=== PATIENT | female | born 1985 | race Caucasian/White ===

== ENCOUNTER 2021-12-12 17:57 | Inpatient (IN) | payer OTHER ==
[2021-12-12 18:25] VITALS: BMI 19.1
[2021-12-12] MEDS ORDERED: MAGNESIUM HYDROX 2400MG/30ML ORAL SUSPENSION 30 ML CUP PO PRN (23:11)
[2021-12-12] MEDS ORDERED: ONDANSETRON *ODT* 4 MG TABLET SL PRN (23:11)
[2021-12-12] MEDS ORDERED: DICYCLOMINE HCL 10 MG CAPSULE PO PRN (23:11)
[2021-12-12] MEDS ORDERED: BENZOCAINE/MENTHOL (CHLORASEPTIC ) LOZENGE MM PRN (23:11)
[2021-12-12] MEDS ORDERED: NALOXONE HCL (KLOXXADO) 8 MG SPRAY NS PRN (23:11)
[2021-12-12] MEDS ORDERED: BISMUTH SUBSALICYLATE 524 MG/30 ML PO PRN (23:11)
[2021-12-12] MEDS ORDERED: ACETAMINOPHEN 325 MG TABLET (FP) PO PRN ×2 (23:11)
[2021-12-12] MEDS ORDERED: LOPERAMIDE HCL 2 MG CAPSULE PO PRN (23:11)
[2021-12-12] MEDS ORDERED: IBUPROFEN 400 MG TABLET (FP) PO PRN (23:11)
[2021-12-12] MEDS ORDERED: IBUPROFEN 600 MG TABLET (FP) PO PRN (23:11)
[2021-12-12] MEDS ORDERED: MAG HYDROX/AL HYDROX/SIMETH 30 ML UNIT-DOSE CUP PO PRN (23:11)
[2021-12-12] MEDS ORDERED: NICOTINE POLACRILEX 2 MG GUM BUC PRN (23:11)
[2021-12-12] MEDS ORDERED: METHOCARBAMOL 500 MG TABLET PO PRN (23:11)
[2021-12-12] MEDS ORDERED: MAGNESIUM CITRATE 300 ML BOTTLE PO PRN (23:11)
[2021-12-12] MEDS ORDERED: cloNIDine HCL 0.1 MG TABLET PO PRN (23:21)
[2021-12-13] MEDS ORDERED: methaDONE HCL 10 MG TABLET (FOR DETOX USE ONLY) PO ONE (10:00)
[2021-12-13] MEDS: PRENATAL VITAMINS W/ FOLIC ACID TABLET (FP) PO SCH (10:04)
[2021-12-13] MEDS: NICOTINE 14 MG/24 HOURS TOPICAL PATCH TD SCH (10:04)
[2021-12-13 11:38] LABS: HEMATOCRIT 31.4 % (32.4-45.2); HEMOGLOBIN 10.2 GM/dL (10.7-15.3); MCH 26.6 pg (25.7-33.7); MCHC 32.6 g/dl (32.0-36.0); MEAN CELL VOLUME 81.7 fl (80-96); MEAN PLT VOLUME 10.1 fl (7.5-11.1); RBC 3.85 M/mm3 (3.60-5.2); RDW 15.6 % (11.6-15.6)
[2021-12-13 11:41] LABS: PLATELET COUNT 231 10^3/uL (134-434)
[2021-12-13 11:49] LABS: ALBUMIN 2.9 g/dl (3.4-5.0); CALCIUM 8.9 mg/dL (8.5-10.1)
[2021-12-13 11:50] LABS: BLOOD UREA NITROGEN 23.3 mg/dL (7-18)
[2021-12-13 11:52] LABS: CREATININE 0.9 mg/dL (0.55-1.3)
[2021-12-13 11:54] LABS: BILIRUBIN,TOTAL 0.4 mg/dL (0.2-1); TOT PROT 5.9 g/dl (6.4-8.2)
[2021-12-13] MEDS ORDERED: NICOTINE 10 MG CARTRIDGE (INHALER) IH PRN (18:45)
[2021-12-13] MEDS: THIAMINE HCL 100 MG TABLET (FP) PO SCH (22:20)
[2021-12-13] MEDS: MELATONIN 5 MG TABLETS PO SCH (22:20)
[2021-12-14] MEDS: NICOTINE 14 MG/24 HOURS TOPICAL PATCH TD SCH (10:36)
[2021-12-14] MEDS: PRENATAL VITAMINS W/ FOLIC ACID TABLET (FP) PO SCH (10:36)
[2021-12-14] MEDS: MELATONIN 5 MG TABLETS PO SCH (22:24)
[2021-12-14] MEDS: THIAMINE HCL 100 MG TABLET (FP) PO SCH (23:14)
[2021-12-15 09:18] VITALS: RESP 18
[2021-12-15] MEDS: NICOTINE 14 MG/24 HOURS TOPICAL PATCH TD SCH (10:34)
[2021-12-15] MEDS: PRENATAL VITAMINS W/ FOLIC ACID TABLET (FP) PO SCH (10:34)
[2021-12-15 13:12] VITALS: BP 101/67; PULSE 68; TEMP 97.1
== END 2021-12-15 14:47 | disposition other institution (70) | DRG 773 ==
LOC: YASAS 17:57 → Y3N 23:01
PROVIDERS: ADMIT Allergy & Immunology; ATTEND Surgery
PROC: HZ2ZZZZ Detoxification Services for Substance Abuse Treatment (ICD-10-PCS; principal; 2021-12-12)
DX: F11.23 Opioid dependence with withdrawal (principal); F12.20 Cannabis dependence, uncomplicated; F17.210 Nicotine dependence, cigarettes, uncomplicated; D64.9 Anemia, unspecified; E46 Unspecified protein-calorie malnutrition; R79.89 Other specified abnormal findings of blood chemistry; Z68.1 Body mass index [BMI] 19.9 or less, adult; Z87.440 Personal history of urinary (tract) infections
CPT/HCPCS: 36415; 71045-TC-FY; 76775-TC; 80053; 80061; 80307; 81003; 81025; 82570; 83735; 84100; 84156; 84300; 84443; 84484; 85025; 85027; 85379; 86780; 87040; 87086; 87811; 93005; 93010; 93970-TC; C9803-CS; G0378; J1644; U0003; U0005

== ENCOUNTER 2022-04-11 21:53 | Inpatient (IN) | payer OTHER ==
[2022-04-11 23:01] VITALS: BMI 25.6
[2022-04-11] MEDS ORDERED: MAG HYDROX/AL HYDROX/SIMETH 30 ML UNIT-DOSE CUP PO PRN (23:24)
[2022-04-11] MEDS ORDERED: IBUPROFEN 400 MG TABLET (FP) PO PRN (23:24)
[2022-04-11] MEDS ORDERED: BENZOCAINE/MENTHOL (CHLORASEPTIC ) LOZENGE MM PRN (23:24)
[2022-04-11] MEDS ORDERED: LOPERAMIDE HCL 2 MG CAPSULE PO PRN (23:24)
[2022-04-11] MEDS ORDERED: ONDANSETRON *ODT* 4 MG TABLET SL PRN (23:24)
[2022-04-11] MEDS ORDERED: BISMUTH SUBSALICYLATE 524 MG/30 ML PO PRN (23:24)
[2022-04-11] MEDS ORDERED: MAGNESIUM HYDROX 2400MG/30ML ORAL SUSPENSION 30 ML CUP PO PRN (23:24)
[2022-04-11] MEDS ORDERED: NALOXONE HCL (KLOXXADO) 8 MG SPRAY NS PRN (23:24)
[2022-04-11] MEDS ORDERED: ACETAMINOPHEN 325 MG TABLET (FP) PO PRN ×2 (23:24)
[2022-04-11] MEDS ORDERED: POLYETHYLENE GLYCOL (HEALTHYLAX) 3350 17 GM PACKET PO PRN (23:24)
[2022-04-12] MEDS: hydrOXYzine PAMOATE 25 MG CAPSULE (FP) PO PRN ×3 (06:44→22:11)
[2022-04-12] MEDS: METHOCARBAMOL 500 MG TABLET PO PRN ×2 (06:44→16:43)
[2022-04-12] MEDS: DICYCLOMINE HCL 10 MG CAPSULE PO PRN ×2 (06:47→22:10)
[2022-04-12] MEDS ORDERED: methaDONE HCL 10 MG TABLET (FOR DETOX USE ONLY) PO ONE (10:45)
[2022-04-12] MEDS: PRENATAL VITAMINS W/ FOLIC ACID TABLET (FP) PO SCH (10:47)
[2022-04-12] MEDS: diazePAM 5 MG TABLET PO SCH ×3 (10:48→22:09)
[2022-04-12] MEDS: NICOTINE 14 MG/24 HOURS TOPICAL PATCH TD SCH (10:49)
[2022-04-12] MEDS: NICOTINE POLACRILEX 2 MG GUM BUC PRN ×2 (14:56→19:49)
[2022-04-12] MEDS: IBUPROFEN 600 MG TABLET (FP) PO PRN (16:43)
[2022-04-12] MEDS: NICOTINE 10 MG CARTRIDGE (INHALER) IH PRN (19:35)
[2022-04-12] MEDS: MELATONIN 5 MG TABLETS PO SCH (22:09)
[2022-04-12] MEDS: THIAMINE HCL 100 MG TABLET (FP) PO SCH (22:09)
[2022-04-13] MEDS: diazePAM 5 MG TABLET PO SCH ×4 (05:30→22:15)
[2022-04-13] MEDS: METHOCARBAMOL 500 MG TABLET PO PRN ×2 (10:13→22:16)
[2022-04-13] MEDS: PRENATAL VITAMINS W/ FOLIC ACID TABLET (FP) PO SCH (10:13)
[2022-04-13] MEDS: NICOTINE 14 MG/24 HOURS TOPICAL PATCH TD SCH (10:15)
[2022-04-13] MEDS: NICOTINE 10 MG CARTRIDGE (INHALER) IH PRN ×3 (10:15→17:26)
[2022-04-13 11:08] LABS: HEMATOCRIT 30.2 % (32.4-45.2); HEMOGLOBIN 10.1 GM/dL (10.7-15.3); MCH 27.4 pg (25.7-33.7); MCHC 33.3 g/dl (32.0-36.0); MEAN CELL VOLUME 82.4 fl (80-96); MEAN PLT VOLUME 8.9 fl (7.5-11.1); PLATELET COUNT 222 10^3/uL (134-434); RBC 3.67 M/mm3 (3.60-5.2); RDW 13.9 % (11.6-15.6); WHITE BLOOD COUNT 4.8 K/mm3 (4.0-10.0)
[2022-04-13 11:10] LABS: BLOOD UREA NITROGEN 21.3 mg/dL (7-18); CALCIUM 8.9 mg/dL (8.5-10.1)
[2022-04-13 11:12] LABS: CREATININE 0.7 mg/dL (0.55-1.3)
[2022-04-13 11:26] LABS: BILIRUBIN,TOTAL 0.2 mg/dL (0.2-1)
[2022-04-13] MEDS: IBUPROFEN 600 MG TABLET (FP) PO PRN (13:45)
[2022-04-13] MEDS: hydrOXYzine PAMOATE 25 MG CAPSULE (FP) PO PRN ×2 (13:45→22:15)
[2022-04-13] MEDS: cloNIDine HCL 0.1 MG TABLET PO PRN ×2 (13:45→22:15)
[2022-04-13] MEDS: MELATONIN 5 MG TABLETS PO SCH (22:15)
[2022-04-13] MEDS: THIAMINE HCL 100 MG TABLET (FP) PO SCH (22:15)
[2022-04-14] MEDS: diazePAM 5 MG TABLET PO SCH ×3 (06:09→23:10)
[2022-04-14] MEDS: METHOCARBAMOL 500 MG TABLET PO PRN (06:11)
[2022-04-14] MEDS ORDERED: methaDONE HCL 10 MG TABLET (FOR DETOX USE ONLY) PO ONE (10:00)
[2022-04-14] MEDS: PRENATAL VITAMINS W/ FOLIC ACID TABLET (FP) PO SCH (10:12)
[2022-04-14] MEDS: NICOTINE 14 MG/24 HOURS TOPICAL PATCH TD SCH (10:13)
[2022-04-14] MEDS: NICOTINE 10 MG CARTRIDGE (INHALER) IH PRN ×2 (10:15→17:24)
[2022-04-14] MEDS: IBUPROFEN 600 MG TABLET (FP) PO PRN (17:21)
[2022-04-14] MEDS: cloNIDine HCL 0.1 MG TABLET PO PRN (17:21)
[2022-04-14] MEDS: hydrOXYzine PAMOATE 25 MG CAPSULE (FP) PO PRN (17:21)
[2022-04-14 21:12] VITALS: BP 141/69; PULSE 65; RESP 17; TEMP 97.3
[2022-04-14] MEDS: MELATONIN 5 MG TABLETS PO SCH (23:09)
[2022-04-14] MEDS: THIAMINE HCL 100 MG TABLET (FP) PO SCH (23:10)
[2022-04-15] MEDS ORDERED: diazePAM 5 MG TABLET PO SCH (06:00)
[2022-04-16] MEDS ORDERED: diazePAM 5 MG TABLET PO ONE (06:00)
[2022-04-16] MEDS ORDERED: methaDONE HCL 10 MG TABLET (FOR DETOX USE ONLY) PO ONE (10:00)
== END 2022-04-15 08:05 | disposition short-term general hospital (02) | DRG 773 ==
LOC: YASAS 21:53 → Y6N 23:31
PROVIDERS: ADMIT Allergy & Immunology; ATTEND Surgery
PROC: HZ2ZZZZ Detoxification Services for Substance Abuse Treatment (ICD-10-PCS; principal; 2022-04-11)
DX: F11.23 Opioid dependence with withdrawal (principal); F10.230 Alcohol dependence with withdrawal, uncomplicated; F14.20 Cocaine dependence, uncomplicated; F12.20 Cannabis dependence, uncomplicated; F17.210 Nicotine dependence, cigarettes, uncomplicated; F31.9 Bipolar disorder, unspecified; F41.9 Anxiety disorder, unspecified; F90.9 Attention-deficit hyperactivity disorder, unspecified type; D64.9 Anemia, unspecified; Z62.810 Personal history of physical and sexual abuse in childhood; Z91.410 Personal history of adult physical and sexual abuse
CPT/HCPCS: 36415; 80053; 81025; 85027; 86780; C9803-CS; Q0162; U0003; U0005

== ENCOUNTER 2022-04-14 20:19 | Inpatient (IN) | payer OTHER ==
[2022-04-14 20:46] VITALS: RESP 18
[2022-04-14] MEDS ORDERED: THIAMINE HCL 100 MG TABLET (FP) PO ONE (23:12)
[2022-04-14] MEDS ORDERED: MELATONIN 5 MG TABLETS PO ONE (23:12)
[2022-04-14] MEDS ORDERED: diazePAM 5 MG TABLET PO ONE (23:12)
[2022-04-14] MEDS ORDERED: KETOROLAC TROMETHAMINE 30 MG/1 ML VIAL IVPUSH ONE (23:12)
[2022-04-14] MEDS ORDERED: VANCOMYCIN 1 GM in D5W (PRE-DOCKED) 1,000 MG/250 ML IVPB ONE (23:15)
[2022-04-14] MEDS ORDERED: PIPERACILLIN/TAZOB 4.5 GM 4.5 GM in DEXTROSE 5%-WATER 100 ML IVPB ONE (23:15)
[2022-04-15] MEDS ORDERED: THIAMINE HCL 100 MG TABLET (FP) ONE
[2022-04-15] MEDS ORDERED: KETOROLAC TROMETHAMINE 30 MG/1 ML VIAL ONE
[2022-04-15] MEDS ORDERED: MELATONIN 5 MG TABLETS ONE
[2022-04-15] MEDS ORDERED: VANCOMYCIN/WATER FOR INJ (PEG) 1,000 MG/200 ML BAG IVPB ONE ×2 (00:01→09:17)
[2022-04-15] MEDS ORDERED: PIPERACILLIN/TAZOB 4.5 GM 4.5 GM/100 ML BAG IVPB ONE (00:01)
[2022-04-15 01:14] LABS: BASO % 0.7 % (0-2.0); EOS % 4.1 % (0-4.5); HEMATOCRIT 31.8 % (32.4-45.2); HEMOGLOBIN 10.4 GM/dL (10.7-15.3); LYMPH % 37.7 % (8-40); MCH 26.9 pg (25.7-33.7); MCHC 32.6 g/dl (32.0-36.0); MEAN CELL VOLUME 82.4 fl (80-96); MEAN PLT VOLUME 8.5 fl (7.5-11.1); MONO % 5.6 % (3.8-10.2); NEUT % 51.9 % (42.8-82.8); PLATELET COUNT 280 10^3/uL (134-434); RBC 3.86 M/mm3 (3.60-5.2)
[2022-04-15] MEDS ORDERED: POTASSIUM CHLORIDE TABS 20 MEQ TABLET.ER (FP) PO ONE (01:32)
[2022-04-15 01:36] LABS: CALCIUM 8.7 mg/dL (8.5-10.1)
[2022-04-15 01:37] LABS: ALBUMIN 3.2 g/dl (3.4-5.0); BLOOD UREA NITROGEN 15.5 mg/dL (7-18)
[2022-04-15 01:40] LABS: CREATININE 0.7 mg/dL (0.55-1.3)
[2022-04-15 01:41] LABS: BILIRUBIN,TOTAL 0.2 mg/dL (0.2-1); TOT PROT 6.5 g/dl (6.4-8.2)
[2022-04-15] MEDS ORDERED: hydrOXYzine PAMOATE 25 MG CAPSULE (FP) PO PRN (03:52)
[2022-04-15] MEDS ORDERED: PIPERACILLIN/TAZOB 3.375 GM 3.375 GM in DEXTROSE 5%-WATER - 50 ML IVPB SCH ×2 (04:30→18:00)
[2022-04-15] MEDS ORDERED: VANCOMYCIN 1,000 MG in DEXTROSE 5%-WATER - 250 ML IVPB SCH (04:30)
[2022-04-15] MEDS ORDERED: SODIUM CHLORIDE 1,000 ML IV STA (05:13)
[2022-04-15] MEDS ORDERED: NICOTINE POLACRILEX 4 MG GUM BUC PRN (05:13)
[2022-04-15] MEDS ORDERED: PIPERACILLIN/TAZOB 3.375 GM 3.375 GM/50 ML BAG IVPB ONE ×2 (05:36→09:18)
[2022-04-15] MEDS: PIPERACILLIN/TAZOB 3.375 GM 3.375 GM in DEXTROSE 5%-WATER - 50 ML IVPB SCH ×2 (05:45→09:31)
[2022-04-15] MEDS ORDERED: hydrOXYzine PAMOATE 25 MG CAPSULE (FP) PO ONE (06:04)
[2022-04-15] MEDS ORDERED: NICOTINE 14 MG/24 HOURS TOPICAL PATCH TD ONE (09:17)
[2022-04-15] MEDS ORDERED: diazePAM 5 MG TABLET ONE ×2 (09:17)
[2022-04-15] MEDS ORDERED: ENOXAPARIN NA (PORCINE) 40 MG/0.4 ML DISP.SYRIN SQ ONE (09:18)
[2022-04-15] MEDS ORDERED: ENOXAPARIN NA (PORCINE) 40 MG/0.4 ML DISP.SYRIN SQ SCH (10:00)
[2022-04-15] MEDS ORDERED: NICOTINE 14 MG/24 HOURS TOPICAL PATCH TD SCH (10:00)
[2022-04-15] MEDS ORDERED: diazePAM 5 MG TABLET PO SCH (10:00)
[2022-04-15] MEDS ORDERED: VANCOMYCIN/WATER FOR INJ (PEG) 1,000 MG/200 ML BAG IVPB SCH (11:00)
[2022-04-15 13:36] VITALS: BP 135/75; PULSE 52; TEMP 98.8; BMI 25.0
[2022-04-15] MEDS ORDERED: MELATONIN 5 MG TABLETS PO PRN (22:00)
[2022-04-16] MEDS ORDERED: diazePAM 5 MG TABLET PO SCH (10:00)
[2022-04-16] MEDS ORDERED: methaDONE HCL 10 MG TABLET PO ONE (10:00)
[2022-04-16] MEDS ORDERED: VANCOMYCIN/WATER 1250 MG 1,250 MG/250 ML BAG IVPB SCH (14:00)
== END 2022-04-15 17:30 | disposition other institution (70) | DRG 384 ==
LOC: JER 20:19 → JERBED 04-15 00:13
PROVIDERS: ADMIT Internal Medicine; ATTEND Internal Medicine
DX: S40.852A Superficial foreign body of left upper arm, initial encounter (principal); L02.413 Cutaneous abscess of right upper limb; L02.414 Cutaneous abscess of left upper limb; F12.10 Cannabis abuse, uncomplicated; F10.10 Alcohol abuse, uncomplicated; F11.10 Opioid abuse, uncomplicated; F14.10 Cocaine abuse, uncomplicated; F31.9 Bipolar disorder, unspecified; F17.210 Nicotine dependence, cigarettes, uncomplicated; F90.9 Attention-deficit hyperactivity disorder, unspecified type; F41.9 Anxiety disorder, unspecified; F60.9 Personality disorder, unspecified
CPT/HCPCS: 0241U-QW; 36415; 73070-TC-LT-FY; 73070-TC-RT-FY; 76882-TC-RT-FY; 80053; 85025; 87040; 93005; 93010; 99285-25

== ENCOUNTER 2022-04-15 19:38 | Inpatient (IN) | payer OTHER ==
[2022-04-15 21:53] VITALS: BMI 25.0
[2022-04-15] MEDS ORDERED: LOPERAMIDE HCL 2 MG CAPSULE PO PRN (22:40)
[2022-04-15] MEDS ORDERED: POLYETHYLENE GLYCOL (HEALTHYLAX) 3350 17 GM PACKET PO PRN (22:40)
[2022-04-15] MEDS ORDERED: ACETAMINOPHEN 325 MG TABLET (FP) PO PRN ×2 (22:40)
[2022-04-15] MEDS ORDERED: NALOXONE HCL (KLOXXADO) 8 MG SPRAY NS PRN (22:40)
[2022-04-15] MEDS ORDERED: MAG HYDROX/AL HYDROX/SIMETH 30 ML UNIT-DOSE CUP PO PRN (22:40)
[2022-04-15] MEDS ORDERED: MAGNESIUM HYDROX 2400MG/30ML ORAL SUSPENSION 30 ML CUP PO PRN (22:40)
[2022-04-15] MEDS ORDERED: ONDANSETRON *ODT* 4 MG TABLET SL PRN (22:40)
[2022-04-15] MEDS ORDERED: IBUPROFEN 600 MG TABLET (FP) PO PRN (22:40)
[2022-04-15] MEDS ORDERED: BENZOCAINE/MENTHOL (CHLORASEPTIC ) LOZENGE MM PRN (22:40)
[2022-04-15] MEDS ORDERED: DICYCLOMINE HCL 10 MG CAPSULE PO PRN (22:40)
[2022-04-15] MEDS ORDERED: BISMUTH SUBSALICYLATE 524 MG/30 ML PO PRN (22:40)
[2022-04-15] MEDS ORDERED: IBUPROFEN 400 MG TABLET (FP) PO PRN (22:40)
[2022-04-15] MEDS ORDERED: METHOCARBAMOL 500 MG TABLET PO PRN (22:40)
[2022-04-15] MEDS ORDERED: NICOTINE 10 MG CARTRIDGE (INHALER) IH PRN (22:40)
[2022-04-15] MEDS ORDERED: cloNIDine HCL 0.1 MG TABLET PO PRN (22:46)
[2022-04-15] MEDS ORDERED: diazePAM 5 MG TABLET PO ONE (22:53)
[2022-04-15] MEDS ORDERED: diazePAM 5 MG TABLET ONE (23:56)
[2022-04-15] MEDS ORDERED: ACETAMINOPHEN 325 MG TABLET (FP) ONE (23:57)
[2022-04-16] MEDS ORDERED: diazePAM 5 MG TABLET PO SCH (06:00)
[2022-04-16 09:50] VITALS: BP 139/92; PULSE 85; RESP 19; TEMP 97.3
[2022-04-16] MEDS ORDERED: methaDONE HCL 10 MG TABLET (FOR DETOX USE ONLY) PO ONE (10:00)
[2022-04-16] MEDS ORDERED: NICOTINE 14 MG/24 HOURS TOPICAL PATCH TD SCH (10:00)
[2022-04-16] MEDS ORDERED: PRENATAL VITAMINS W/ FOLIC ACID TABLET (FP) PO SCH (10:00)
[2022-04-16] MEDS ORDERED: MELATONIN 5 MG TABLETS PO SCH (22:00)
[2022-04-16] MEDS ORDERED: THIAMINE HCL 100 MG TABLET (FP) PO SCH (22:00)
[2022-04-17] MEDS ORDERED: diazePAM 5 MG TABLET PO ONE (06:00)
== END 2022-04-16 11:23 | disposition home or self-care (01) | DRG 773 ==
LOC: YASAS 19:38 → Y3N 22:57
PROVIDERS: ADMIT Allergy & Immunology; ATTEND Surgery
PROC: HZ2ZZZZ Detoxification Services for Substance Abuse Treatment (ICD-10-PCS; principal; 2022-04-15)
DX: F11.23 Opioid dependence with withdrawal (principal); F10.230 Alcohol dependence with withdrawal, uncomplicated; F14.20 Cocaine dependence, uncomplicated; F12.20 Cannabis dependence, uncomplicated; F17.210 Nicotine dependence, cigarettes, uncomplicated; F31.9 Bipolar disorder, unspecified; F41.9 Anxiety disorder, unspecified
CPT/HCPCS: 81025; 87811